=== PATIENT | female | born 1990 | race Asian ===

== ENCOUNTER 2016-08-09 09:14 | Inpatient (IN) | payer SELFPAY ==
[2016-08-08 13:42] LABS: BILIRUBIN,URINE NEGATIVE (NEGATIVE); BLOOD, URINE NEGATIVE (NEGATIVE); CLARITY/URINE CLEAR (CLEAR); COLOR,URINE YELLOW (YELLOW); GLUCOSE,URINE NEGATIVE (NEGATIVE); KETONES,URINE NEGATIVE (NEGATIVE); LEUKOCYTE ESTERASE ,URINE NEGATIVE (NEGATIVE); NITRITE, URINE NEGATIVE (NEGATIVE); PROTEIN URINE NEGATIVE (NEGATIVE); UROBILINOGEN,URINE 0.2 (0.2-1.0)
[2016-08-08 13:43] LABS: BASOPHILS # (AUTO) 0.1 K/uL (0.0-0.2); BASOPHILS % (AUTO) 0.4 % (0.0-2.0); EOSINOPHILS # (AUTO) 0.2 K/uL (0.0-0.4); EOSINOPHILS % (AUTO) 1.1 % (0.0-4.0); HEMATOCRIT 35.2 % (36-48); HEMOGLOBIN 12.2 g/dL (12.0-16.0); LYMPHOCYTES # (AUTO) 2.1 K/uL (1.0-5.5); LYMPHOCYTES % (AUTO) 15.5 % (20.5-51.5); MEAN CORPUSCULAR HEMOGLOBIN 33 pg (27-31); MEAN CORPUSCULAR HGB CONC 35 % (32-36); MEAN CORPUSCULAR VOLUME 95 fL (79.0-98.0); MONOCYTES # (AUTO) 0.8 K/uL (0.0-1.0); MONOCYTES % (AUTO) 5.9 % (1.7-9.3); NEUTROPHILS # (AUTO) 10.6 K/uL (1.8-7.7); NEUTROPHILS % (AUTO) 77.1 % (40.0-70.0); PLATELET COUNT (AUTO) 242 K/uL (130-430); RED BLOOD CELL COUNT(AUTO) 3.71 MIL/uL (4.2-6.2); RED CELL DISTRIBUTION WIDTH 13.1 % (9.0-15.0); WHITE BLOOD COUNT (AUTO) 13.8 K/uL (4.8-10.8)
[~2016-08-09] VITALS: Ht 168 cm; Wt 95.3 kg
[2016-08-09] MEDS ORDERED: LR 1,000 ML IV ONE (10:12)
[2016-08-09] MEDS ORDERED: CEFAZOLIN 2 GM IVPB PREMIX 50 ML IV ONE (10:15)
[2016-08-09] MEDS ORDERED: METHYLERGONOVINE MALEATE 0.2 MG/ML AMP IM ONE (12:30)
[2016-08-09] MEDS ORDERED: OXYTOCIN 10 UNIT/ML VIAL IV ONE (12:30)
[2016-08-09] MEDS ORDERED: TRIAMCINOLONE ACETONIDE 40 MG/ML IM ONE (12:30)
[2016-08-09] MEDS ORDERED: LR 1,000 ML IV.SOLN IV ONE (12:30)
[2016-08-09] MEDS ORDERED: NS IRRIG SOLN 1000 ML IR ONE (12:30)
[2016-08-09] MEDS ORDERED: ONDANSETRON HCL 4 MG/2 ML VIAL IVP ONE (12:30)
[2016-08-09] MEDS ORDERED: MIDAZOLAM HCL 5 MG/5 ML VIAL IVP ONE (12:30)
[2016-08-09] MEDS ORDERED: MORPHINE SULFATE 10MG/10ML PF AMP EP ONE (12:30)
[2016-08-09] MEDS ORDERED: ePHEDrine sulfate 50 MG/ML VIAL IV ONE (12:30)
[2016-08-09] MEDS ORDERED: OXYTOCIN/NORMAL SALINE 1,000 ML IV ONE (12:32)
[2016-08-09] MEDS ORDERED: ANUSOL 1 EA SUPP.RECT (PREPARATION H) RC PRN (12:45)
[2016-08-09] MEDS ORDERED: HYDROcodone/ACETAMIN 5-325 MG TAB (NORCO/ VICODIN) PO PRN (12:45)
[2016-08-09] MEDS ORDERED: LANOLIN 7 GM OINT. TP PRN (12:45)
[2016-08-09] MEDS ORDERED: OXYCODONE/ACETAMINOPHEN 5-325 TABLET PO PRN ×2 (12:45)
[2016-08-09] MEDS ORDERED: MEASLES,MUMPS&RUBELLA VACC/PF 12500 UNIT/0.5 ML VIAL SUBQ PRN (12:45)
[2016-08-09] MEDS ORDERED: LR 1,000 ML IV SCH (13:07)
[2016-08-09] MEDS ORDERED: NALOXONE HCL 0.4 MG/ML AMP (NARCAN) IVP PRN (13:15)
[2016-08-09] MEDS ORDERED: MORPHINE SULFATE 10MG/10ML PF AMP SP SCH (13:15)
[2016-08-09] MEDS ORDERED: KETOROLAC TROMETHAMINE 60 MG/2 ML VIAL IM PRN (13:15)
[2016-08-09] MEDS ORDERED: ONDANSETRON HCL 4 MG/2 ML VIAL IVP PRN (13:15)
[2016-08-09] MEDS ORDERED: MEPERIDINE HCL/PF 25 MG/ML DISP.SYRIN IVP PRN (13:15)
[2016-08-09] MEDS ORDERED: DIPHENHYDRAMINE INJ 50 MG/ML VIAL IM PRN (13:15)
[2016-08-09] MEDS ORDERED: METOCLOPRAMIDE HCL 10 MG/2 ML VIAL IVP PRN (13:15)
[2016-08-09] MEDS ORDERED: MEPERIDINE HCL/PF 50 MG/ML AMP IVP PRN ×2 (13:15)
[2016-08-09 13:50] VITALS: BP 108/66
[2016-08-09] MEDS: CEFAZOLIN 1 GM IVPB PREMIX 50 ML IV SCH (18:28)
[2016-08-09] MEDS ORDERED: TEMAZEPAM 15 MG CAPSULE PO PRN (21:00)
[2016-08-10] MEDS: CEFAZOLIN 1 GM IVPB PREMIX 50 ML IV SCH ×2 (00:05→06:09)
[2016-08-10] MEDS: SIMETHICONE 80 MG TAB.CHEW PO PRN (06:09)
[2016-08-10] MEDS: IBUPROFEN 600 MG TABLET PO SCH ×4 (06:09→23:47)
[2016-08-10] MEDS: DOCUSATE SODIUM 100 MG CAPSULE PO PRN ×2 (06:09→12:02)
[2016-08-10 06:41] LABS: BASOPHILS % (AUTO) 0.2 % (0.0-2.0); EOSINOPHILS % (AUTO) 0.2 % (0.0-4.0); HEMATOCRIT 29.1 % (36-48); HEMOGLOBIN 9.9 g/dL (12.0-16.0); LYMPHOCYTES # (AUTO) 1.7 K/uL (1.0-5.5); LYMPHOCYTES % (AUTO) 10.8 % (20.5-51.5); MEAN CORPUSCULAR HEMOGLOBIN 32 pg (27-31); MEAN CORPUSCULAR HGB CONC 34 % (32-36); MEAN CORPUSCULAR VOLUME 95 fL (79.0-98.0); MONOCYTES % (AUTO) 6.8 % (1.7-9.3); NEUTROPHILS # (AUTO) 12.7 K/uL (1.8-7.7); PLATELET COUNT (AUTO) 212 K/uL (130-430); RED BLOOD CELL COUNT(AUTO) 3.06 MIL/uL (4.2-6.2); RED CELL DISTRIBUTION WIDTH 12.6 % (9.0-15.0); WHITE BLOOD COUNT (AUTO) 15.4 K/uL (4.8-10.8)
[2016-08-11] MEDS: IBUPROFEN 600 MG TABLET PO SCH ×2 (05:42→12:17)
[2016-08-11] MEDS: SIMETHICONE 80 MG TAB.CHEW PO PRN (09:42)
== END 2016-08-11 15:20 | disposition home or self-care (01) | DRG 766 ==
LOC: SPU 09:14 → EDBD 09:14
PROVIDERS: ADMIT Obstetrics & Gynecology; ATTEND Obstetrics & Gynecology
PROC: 10D00Z1 Extraction of Products of Conception, Low, Open Approach (ICD-10-PCS; principal; 2016-08-09 12:30)
DX: O34.219 Maternal care for unspecified type scar from previous cesarean delivery (principal); Z37.0 Single live birth; Z3A.39 39 weeks gestation of pregnancy
CPT/HCPCS: 36415; 81003; 85025; 86870; 86886; 86900; 86901; 94760; J0690; J2210; J2250; J2274; J2405; J2590; J3301; J7120